=== PATIENT | female | born 1940 | race Hispanic/Latino ===

== ENCOUNTER → 2017-08-18 | Outpatient (CLI) | payer MEDICARE, BC ==
[~2017-08-18] MED LIST: ATORVASTATIN CA40 MG PO; BREO INH; BUTRANS1 EAC1; CELEBREX200 MG PO; ELLIPTA INH; HUMALOG MI100 UNIT/4 SQ; HYDROXYCHLOROQ200 MG PO; LANTUS100 UNITS/ SQ; LEVSIN-SL0.125 MG SL; LOSARTAN-HCTZ1 EAC2 PO; LYRICA50 MG; MECLIZINE HCL25 MG PO; METOPROLOL TART25 MG PO; NEXIUM40 MG PO; NORCO 7.5-3251 EACH PO; PANTOPRAZOLE SO40 MG PO; PREDNISONE5 MG PO; PREVACID; QUETIAPINE FUMA25 MG PO; VESICARE5 MG PO; VICTOZA 3-0.6 MG/0.1 SQ; VIT C PO; VITAMIN D PO; [UNRECOGNIZED DRUG - OTHER] PO
--- NOTE | 2017-08-19 08:34 | Diagnostic Imaging Report ---
Examination: MRI SPINE LUMBAR WITHOUT CONTRAST History: Low back pain for the past 2 years. Comparison studies: MRI of the lumbar spine performed April 25, 2014. Technique: Sagittal, coronal and axial T2 , sagittal T1 and STIR; axial spin density oblique. Findings: Number of lumbar vertebral bodies: Five. Alignment: Normal lordosis. No scoliosis. Soft tissues: Atrophic kidneys, unchanged. Posterior paraspinal soft tissues and muscles: Unchanged moderate atrophy from L4 through S1. Lower thoracic cord: Normal in signal and morphology. The tip of the conus is at T12-L1. Cauda equina: No masses. No arachnoiditis. Vertebrae: No fractures, infection or neoplasm. Degenerative changes: L1-L2: No abnormalities. L2-L3: Mild retrolisthesis, unchanged. Mild diffuse disc bulge with mild bilateral neural foraminal narrowing, new from prior exam. No canal stenosis. L3-L4: Asymmetric to the left disc bulge, mild ligamentum flavum thickening and bilateral facet arthropathy result in mild bilateral neural foraminal narrowing and mild canal stenosis. L4-L5: Bilateral pedicle screws and decompressive laminectomy changes. No foraminal stenosis. L5-S1: Unchanged findings related to decompressive laminectomy with bilateral L5 pedicle screws and interbody disc spacer. Unchanged mild right foraminal narrowing due to diffuse disc bulge. No left foraminal narrowing. IMPRESSION: 1. New mild bilateral neural foraminal narrowing at L2-L3 when compared to prior examination performed April 25, 2014. 2. Unchanged remaining degenerative changes from L3-L4 through L5-S1 with mild canal stenosis at L3-L4. 3. Prior decompressive laminectomies from L4 through S1 with bilateral pedicle screws at L4 and L5 and interbody disc spacer at L5-S1. 4. Unchanged mild retrolisthesis of L2 on L3. Signed by: Dr. Stephanie Cage M.D. on 08/19/2017 8:30 AM
== END ==
LOC: MRI 14:32
PROVIDERS: ATTEND Internal Medicine
DX: M53.9 Dorsopathy, unspecified (principal)
CPT/HCPCS: 72148

== ENCOUNTER → 2017-09-08 | Outpatient (CLI) | payer MEDICARE, BC ==
[2017-09-08 13:59] LABS: CREATININE, SERUM 1.37 mg/dL (0.57-1.11)
--- NOTE | 2017-09-08 15:18 | Diagnostic Imaging Report ---
EXAMINATION: MRI of the brain without contrast. HISTORY: Head trauma, frequent falls, follow-up subdural hematomas. COMPARISON: Head CT on 01/31/2016 and 08/07/[address] on 01/30/2011 TECHNIQUE: Sagittal T2; axial DWI, T2, FLAIR, T1-IR, T2 gradient echo; coronal FLAIR. IMAGE QUALITY: Adequate. FINDINGS: Parenchyma: 1. Few scattered and mildly confluent periventricular white matter T2 hyperintense foci, most likely nonspecific chronic microvascular ischemic changes. 2. No mass, hemorrhage, acute or chronic infarcts. Skull: Unremarkable. Vessels: Expected flow voids present in the major arteries and dural sinuses. Extra-axial spaces: No abnormal signal intensity or mass effect. Stable approximately 8 mm maximum AP diameter bilateral anterior frontal chronic subdural hygromas without associated mass effect. Brain volume: Mild supra and infratentorial generalized brain volume loss. No disproportionate lobar atrophy. Ventricles: No hydrocephalus or displacement. Foramen magnum: Unremarkable. Sella: Unremarkable. Paranasal / mastoid sinuses: No significant inflammatory disease. IMPRESSION: 1. No acute posttraumatic intracranial abnormalities, particularly no evidence of hemorrhage or acute subdural hematomas. 2. Unchanged small bilateral frontal chronic subdural hygromas when compared to multiple studies back to 01/30/2011, no further follow-up imaging is required. 3. Mild chronic microvascular ischemic changes. Signed by: Dr. Bethanie Cherry M.D. on 09/08/2017 3:14 PM
== END ==
LOC: MRI 12:50
PROVIDERS: ATTEND Psychiatry & Neurology Clinical Neurophysiology
DX: I62.00 Nontraumatic subdural hemorrhage, unspecified (principal)
CPT/HCPCS: 36415; 70551; 82565; 84520

== ENCOUNTER → 2017-09-23 | Outpatient (CLI) | payer MEDICARE, BC ==
--- NOTE | 2017-09-23 09:03 | Diagnostic Imaging Report ---
PROCEDURE:ABDOMINAL ULTRASOUND COMPARISON:Patients [facility], US, US ABDOMEN COMPLETE, 04/09/2014, 12:34. Patients [facility], CT, CT ABDOMEN/PELVIS W CONTRAST, 01/23/2011, 20:00. INDICATIONS:Renal insufficiency TECHNIQUE:Grayscale and color Doppler ultrasound FINDINGS: Inner segments of the aorta and inferior vena cava are of normal caliber aerated Normal pancreatic head and body. The tail is obscured by bowel gas. Right liver span 13.1 cm. Diffusely increased and coarsened echotexture. Portal vein diameter 0.8 cm; normal flow direction. Cholecystectomy. Common bile duct diameter 0.6 cm Right kidney: 11.2 x 3.6 x 3.8 cm. Cortical thickness 1.3 cm Left kidney: 10.6 x 4.5 x 4 cm. Cortical thickness 1.2 cm Both kidneys are normal in echotexture and contour. No hydronephrosis, mass or stone. Left kidney contains a 1.3 cm hypoechoic nodule stable in size since 2014, likely a small complex cyst. Spleen length 9.3 cm. No ascites. CONCLUSION: 1. Mild renal cortical thinning similar to 2014 without acute abnormality. 2. Echogenic liver in keeping with steatosis. Dictated by: Brian Bella M.D. on 09/23/2017 at 9:12 Electronically approved by: Brian Bella M.D. on 09/23/2017 at 9:12
--- NOTE | 2017-09-23 09:18 | Diagnostic Imaging Report ---
EXAM: DXA BONE DENSITY INDICATIONS: Renal insufficiency COMPARISON: [facility], DX, BONE DXA DUAL ENERGY, 09/19/2015, 13:00. FINDINGS: Left femoral neck bone mineral density (BMD) (g/cm2):0.675 Femur T-score (standard deviation relative to young adult mean BMD): -1.7 Femur Z-score (standard deviation relative to age-matched control group):0.5 Lumbar bone mineral density (L1-L3) (BMD) (g/cm2):1.047 Lumbar T-score (standard deviation relative to young adult mean BMD): 0.3 Lumbar Z-score (standard deviation relative to age-matched control group):2.7 Femur: Change since prior exam (%):-4.8 Change since baseline exam (%):-6.8 Spine:+3.8 Change since prior exam (%):+4.5 Change since baseline exam (%): CONCLUSION: 1. WHO bone mineral classification: Low bone mass (osteopenia) 2. There is a statistically significant decrease in bone mineral density of the left hip. 3. Major 10 year osteoporotic fracture risk is 5.9%, with a hip fracture risk a 1.1%. World Health Organization Classification: *The Z-score is provided for informational purposes. The T-score is preferable for clinical decisions. RECOMMENDATIONS: Normal \T\ Low Bone Mass: Calcium supplementation, daily multi-vitamin, and adequate exercise as preventive measures against osteoporosis. Osteoporosis \T\ Severe Osteoporosis: In addition to the above, pharmacologic therapy. Dictated by: Brian Bella M.D. on 09/23/2017 at 9:28 Electronically approved by: Brian Bella M.D. on 09/23/2017 at 9:28
--- NOTE | 2017-10-05 08:25 | Diagnostic Imaging Report ---
#[id number] - MGSCRBIL #BILATERAL DIGITAL SCREENING MAMMOGRAM WITH CAD: 09/23/2017 CLINICAL: Routine screening. Comparison is made to exams dated: 09/28/2016 mammogram, 09/19/2015 mammogram and 09/18/2014 mammogram - [facility]. Current study contains 5 films. The tissue of both breasts is heterogeneously dense. This may lower the sensitivity of mammography. Current study was also evaluated with a Computer Aided Detection (CAD) system. There are benign vascular calcifications and calcifications in both breasts. There also are benign lymph nodes in both breasts. No significant masses, calcifications, or other findings are seen in either breast. There has been no significant interval change. IMPRESSION: BENIGN There is no mammographic evidence of malignancy. A 1 year screening mammogram is recommended. The patient will be notified by letter of the results. Jose braxton/tan:10/04/2017 12:27:55 Visual Education Director: Radha JOHNSON(R)(M), [facility] letter sent: Compared to Prior B9 Mammogram BI-RADS: 2 Benign
== END ==
LOC: US 07:32
PROVIDERS: ATTEND Internal Medicine
DX: Z12.31 Encounter for screening mammogram for malignant neoplasm of breast (principal); Z13.820 Encounter for screening for osteoporosis; N28.9 Disorder of kidney and ureter, unspecified; M54.9 Dorsalgia, unspecified
CPT/HCPCS: 76700; 77080; G0202; 77067

== ENCOUNTER → 2018-06-25 | Day surgery (SDC) | payer MEDICARE, BC ==
[2018-06-22 10:37] LABS: BASOPHILS % 0.5 % (0.0-1.0); EOSINOPHILS # (AUTO) 0.1 (0.0-0.4); EOSINOPHILS % 0.7 % (0.0-6.0); HEMATOCRIT 41.1 % (34.2-44.1); HEMOGLOBIN 13.1 g/dL (12.0-16.0); LYMPHOCYTES # (AUTO) 1.8 (1.0-3.2); LYMPHOCYTES % 20.6 % (18.0-39.1); MEAN CORPUSCULAR HEMOGLOBIN 28.4 pg (28-32); MEAN CORPUSCULAR HGB CONC 31.9 g/dL (31-35); MONOCYTES # (AUTO) 0.8 (0.2-0.8); MONOCYTES % 8.8 % (4.4-11.3); NEUTROPHILS # (AUTO) 5.9 (2.1-6.9); NEUTROPHILS % 68.9 % (38.7-80.0); PLATELET COUNT 189 x10e3/uL (140-360); RED BLOOD COUNT 4.62 x10e6/uL (3.6-5.1); RED CELL DISTRIBUTION WIDTH 13.3 % (11.7-14.4)
[~2018-06-25] MED LIST changes: +AMLODIPINE BESYL5 MG PO; +AZELASTINE137 MCG/0.; +CYMBALTA30 MG PO; +FENTANYL CITRATE/PF 100MCG/2 ML INJ ONE; +GABAPENTIN300 MG PO; +HUMALOG MI100 UNIT/2 SQ; +HYOSCYAMINE SULFATE 0.5 MG/ML INJ ONE; +IRBESARTAN300 MG PO; +MIDAZOLAM HCL 2 MG/2 ML VIAL ONE; +VITAMIN D250000 UNIT PO
--- OUTSIDE RECORDS SUMMARY | 2018-06-27 11:24 | XMS REPORT ---
Author Author Dave Saul Organization [employer] Address Unknown Phone Unavailable Care Team Providers Care State Director Name Role Phone Dave Saul CP Unavailable Allergies No Known Allergies Problems Problem Type Condition Code Onset Dates Condition Status Problem Mid back pain M54.9 Active Problem Lumbar post-laminectomy syndrome M96.1 Active Problem Lumbosacral spondylosis without myelopathy M47.817 Active Problem Lumbar radiculopathy M54.16 Active Assessment Lumbosacral spondylosis without myelopathy M47.817 Active Problem Neuropathy G62.9 Active Problem Chronic pain syndrome G89.4 Active Medications No Known Medications Results No Known Results Summary Purpose [employer] Submission
--- OUTSIDE RECORDS SUMMARY | 2018-06-27 11:24 | XMS REPORT ---
Author Author Agusto Card [facility] [employer] Address Unknown Phone Unavailable Care Team Providers Care Hazardous Waste Technician Name Role Phone Agusto Card Unavailable Allergies, Adverse Reactions, Alerts Substance Reaction Event Type N.K.D.A. 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 Problem Bilateral low back pain with sciatica, sciatica laterality unspecified M54.40 Active Problem Low back pain M54.5 Active Medications Medication Code System Code Instructions Start Date End Date Status Dosage Losartan NDC 0 50mg Orally Once a day Active 1 tablet Folic Acid [facility] [address]-96 1 MG Orally Once a day May 31, 2017 Sep 28, 2017 Active 1 tablet Metoprolol Tartrate [facility] [address]-82 25 MG Orally Twice a day Active 1 tablet with food Methotrexate NDC 0 2.5mg Orally Once a week May 31, 2017 Sep 28, 2017 Active 4 tabs altogether Breo Ellipta [facility] [address]-59 100-25 MCG/INH Inhalation Once a day Active 1 puff Humalog [facility] [address]-21 75/25 Subcutaneous Active as directed Atorvastatin Calcium [facility] [address]-63 20 MG Orally Once a day Active 1 tablet Montelukast Sodium [facility] [address]-95 10 MG Orally Once a day Active 1 tablet in the evening Fluticasone Propionate [facility] [address]-66 50 MCG/ACT Nasally Once a day Active 1 spray in each nostril Esomeprazole Magnesium [facility] [address]-02 40 MG Orally Once a day Active 1 capsule PredniSONE NDC 0 5 MG Orally Once a day May 31, 2017 Sep 28, 2017 Active 1 tab prn Skustqawqaz-JWGR-Ramzuqw Prod NDC 0 7.5/325 MG Orally BID Active 1 tablet Hydroxychloroquine Sulfate ND 02115964057 200 MG Orally qam Active 1 tablet with food or milk Vital Signs Date/Time: May 31, 2017 BMI 32.63 Index Weight 167.1 lbs Height 60 in Temperature 97.7 F Cardiac Monitoring Heart Rate 80 /min Blood Pressure Diastolic 70 mm Hg Blood Pressure Systolic 110 mm Hg Results No Known Results Immunizations Vaccine Administration Date Flu Vaccine May 31, 2017 Summary Purpose [employer] Submission
--- OUTSIDE RECORDS SUMMARY | 2018-06-27 11:24 | XMS REPORT ---
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
--- OUTSIDE RECORDS SUMMARY | 2018-06-27 11:24 | XMS REPORT ---
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
--- OUTSIDE RECORDS SUMMARY | 2018-06-27 11:24 | XMS REPORT ---
Author Author Lavon Morales Organization [employer] Address Unknown Phone Unavailable Care Team Providers Care Regional Administrative Assistant Name Role Phone Lavon Morales CP Unavailable Allergies No Known Allergies Problems Problem Type Condition Code Onset Dates Condition Status Problem Lumbar radiculopathy M54.16 Active Problem Lumbar post-laminectomy syndrome M96.1 Active Problem Chronic pain syndrome G89.4 Active Problem Neuropathy G62.9 Active Medications No Known Medications Results No Known Results Summary Purpose [employer] Submission
--- OUTSIDE RECORDS SUMMARY | 2018-06-27 11:24 | XMS REPORT | CCD ---
Author Author Auto Generated Organization [facility] Address Unknown Phone Unavailable Care Team Providers Care Design Project Manager Name Role Phone ChartServer, Login CP Unavailable Jurgen Mora RP Pacheco Lyle CP [phone] Jania Gomez CP [phone] Apolonia Walton CP Allergies, Adverse Reactions, Alerts Substance Reaction Status NKDA ?? Active Vital Signs Most recent to oldest [Reference Range]: 1 Height 154.94 cm (06/24/2011 09:38:00) ?? Weight 81.818 kg (06/24/2011 09:38:00) ??
--- OUTSIDE RECORDS SUMMARY | 2018-06-27 11:24 | XMS REPORT ---
Author Author [facility] Organization [facility] Address Unknown Phone Unavailable Care Team Providers Care Certified Teacher Assistant Name Role Phone David WOODALL Unavailable Unavailable WEDNESDAY, Unavailable Unavailable Problems This patient has no known problems. Allergies, Adverse Reactions, Alerts This patient has no known allergies or adverse reactions. Medications This patient has no known medications. Results Test Description Test Time Test Comments Text Results Atomic Results Result Comments BONE DXA DUAL ENERGY [place] [address] Patient Name: FRANCISCA BOATENG MR #: [id number] : 1940 Age/Sex: 77/F Req #: [id number] [facility] Physician: Ordered by: YUDY WOODALL MD Report #: [id number] Location: US Room/Bed: Procedure: [id number] DX/BONE DXA DUAL ENERGY Exam Date: Exam Time: REPORT STATUS: Signed EXAM: DXA BONE DENSITY INDICATIONS: Renal insufficiency COMPARISON: [facility], DX, BONE DXA DUAL ENERGY, 09/19/2015, 13:00. FINDINGS: Left femoral neck bone mineral density (BMD) (g/cm2): 0.675 Femur T-score (standard deviation relative to young adult mean BMD): -1.7 Femur Z-score (standard deviation relative to age-matched control group): 0.5 Lumbar bone mineral density (L1-L3) (BMD) (g/cm2): 1.047 Lumbar T- score (standard deviation relative to young adult mean BMD): 0.3 Lumbar Z-score (standard deviation relative to age-matched control group): 2.7 Femur: Change since prior exam (%): -4.8 Change since baseline exam (%): -6.8 Spine: +3.8 Change since prior exam (%): +4.5 Change since baseline exam (%): CONCLUSION: 1. WHO bone mineral classification: Low bone mass (osteopenia) 2. There is a statistically significant decrease in bone mineral density of the left hip. 3. Major 10 year osteoporotic fracture risk is 5.9%, with a hip fracture risk a 1.1%. World Health Organization Classification: *The Z-score is provided for informational purposes. The T-score is preferable for clinical decisions. RECOMMENDATIONS: Normal T Low Bone Mass: Calcium supplementation, daily multi-vitamin, and adequate exercise as preventive measures against osteoporosis. Osteoporosis T Severe Osteoporosis: In addition to the above, pharmacologic therapy. Dictated by: Rj Bella M.D. on 09/23/2017 at 9:28 Electronically approved by: Rj Bella M.D. on 09/23/2017 at 9:28 Dictated By: RJ BELLA MD 7 Transcribed By: CHOCO on 09/23/17927 COPY TO: YUDY WOODALL MD MAMMOGRAPHY DIGITAL SCR [place] [address] Patient Name: FRANCISCA BOATENG MR #: [id number] : 1940 Age/Sex: 77/F Req #: [id number] [facility] Physician: Ordered by: YUDY WOODALL MD Report #: [id number] Location: Room/Bed: Procedure: [id number] MG/MAMMOGRAPHY DIGITAL SCR BILAT Exam Date: 09/23/17 Exam Time: 0833 REPORT STATUS: Signed #[id number] - MGSCRBIL #BILATERAL DIGITAL SCREENING MAMMOGRAM WITH CAD: 09/23/2017 CLINICAL: Routine screening. Comparison is made to exams dated: 09/28/2016 mammogram, 09/19/2015 mammogram and 09/18/2014 mammogram - [facility]. Current study contains 5 films. The tissue of both breasts is heterogeneously dense. This may lower the sensitivity of mammography. Current study was also evaluated with a Computer Aided Detection (CAD) system. There are benign vascular calcifications and calcifications in both breasts. There also are benign lymph nodes in both breasts. No significant masses, calcifications, or other findings are seen in either breast. There has been no significant interval change. IMPRESSION: BENIGN There is no mammographic evidence of malignancy. A 1 year screening mammogram is recommended. The patient will be notified by letter of the results. Janene braxton/cathleen:10/04/2017 12:27:55 Camera Repairman: Radha JOHNSON(Kitty)(M), [facility] letter sent: Compared to Prior B9 Mammogram BI-RADS: 2 Benign Dictated By: JANENE PINTO DO 1227 Transcribed By: CATHLEEN on 10/04/17 1227 COPY TO: YUDY WOODALL MD US ABDOMEN COMPLETE [place] [address] Patient Name: FRANCISCA BOATENG MR #: [id number] : 1940 Age/Sex: 77/F Req #: [id number] Adm Physician: Ordered by: YUDY WOODALL MD Report #: [id number] Location: Room/Bed: Procedure: [id number] US/US ABDOMEN COMPLETE Exam Date: 09/23/17 Exam Time: 0800 REPORT STATUS: Signed PROCEDURE: ABDOMINAL ULTRASOUND COMPARISON: [facility], US, US ABDOMEN COMPLETE, 04/09/2014, 12:34. [facility], CT, CT ABDOMEN/PELVIS W CONTRAST, 01/23/2011, 20:00. INDICATIONS: Renal insufficiency TECHNIQUE: Grayscale and color Doppler ultrasound FINDINGS: Inner segments of the aorta and inferior vena cava are of normal caliber aerated Normal pancreatic head and body. The tail is obscured by bowel gas. Right liver span 13.1 cm. Diffusely increased and coarsened echotexture. Portal vein diameter 0.8 cm; normal flow direction. Cholecystectomy. Common bile duct diameter 0.6 cm Right kidney: 11.2 x 3.6 x 3.8 cm. Cortical thickness 1.3 cm Left kidney: 10.6 x 4.5 x 4 cm. Cortical thickness 1.2 cm Both kidneys are normal in echotexture and contour. No hydronephrosis, mass or stone. Left kidney contains a 1.3 cm hypoechoic nodule stable in size since 2014, likely a small complex cyst. Spleen length 9.3 cm. No ascites. CONCLUSION: 1. Mild renal cortical thinning similar to 2014 without acute abnormality. 2. Echogenic liver in keeping with steatosis. Dictated by: Rj Bella M.D. on 09/23/2017 at 9:12 Electronically approved by: Rj Bella M.D. on 09/23/2017 at 9:12 Dictated By: RJ BELLA MD 1 Transcribed By: CHOCO on 09/23/17911 COPY TO: YUDY WOODALL MD MRI BRAIN [place] [address] Patient Name: FRANCISCA BOATENG MR #: [id number] : 1940 Age/Sex: 77/F Re #: [id number] [facility] Physician: Ordered by: BRUNO ORDAZ MD Report #: [id number] Location: MRI Room/Bed: Procedure: [id number] MRI/MRI BRAIN WO Exam Date: 09/08/17 Exam Time: 1409 REPORT STATUS: Signed EXAMINATION: MRI of the brain without contrast. HISTORY: Head trauma, frequent falls, follow-up subdural hematomas. COMPARISON: Head CT on 01/31/2016 and 08/07/[address] on 01/30/2011 TECHNIQUE: Sagittal T2; axial DWI, T2, FLAIR, T1-IR, T2 gradient echo; coronal FLAIR. IMAGE QUALITY: Adequate. FINDINGS: Parenchyma: 1. Few scattered and mildly confluent periventricular white matter T2 hyperintense foci, most likely nonspecific chronic microvascular ischemic changes. 2. No mass, hemorrhage, acute or chronic infarcts. Skull: Unremarkable. Vessels: Expected flow voids present in the major arteries and dural sinuses. Extra-axial spaces: No abnormal signal intensity or mass effect. Stable approximately 8 mm maximum AP diameter bilateral anterior frontal chron ic subdural hygromas without associated mass effect. Brain volume: Mild supra and infratentorial generalized brain volume loss. No disproportionate lobar atrophy. Ventricles: No hydrocephalus or displacement. Foramen magnum: Unremarkable. Sella: Unremarkable. Paranasal / mastoid sinuses: No significant inflammatory disease. IMPRESSION: 1. No acute posttraumatic intracranial abnormalities, particularly no evidence of hemorrhage or acute subdural hematomas. 2. Unchanged small bilateral frontal chronic subdural hygromas when compared to multiple studies back to 01/30/2011, no further follow-up imaging is required. 3. Mild chronic microvascular ischemic changes. Signed by: Dr. Louie Cherry M.D. on 09/08/2017 3:14 PM Dictated By: LOUIE CHERRY MD 13 Transcribed By: NICOLE on 09/08/171513 COPY TO: WEDNESDAYBRUNO MD MRI SPINE LUMBAR WO [place] [address] Patient Name: FRANCISCA BOATENG MR #: [id number] : 1940 Age/Sex: 77/F Req #: [id number] Adm Physician: Ordered by: YUDY WOODALL MD Report #: [id number] Location: MRI Room/Bed: Procedure: [id number] MRI/MRI SPINE LUMBAR WO Exam Date: Exam Time: REPORT STATUS: Signed Examination: MRI SPINE LUMBAR WITHOUT CONTRAST History: Low back pain for the past 2 years. Comparison studies: MRI of the lumbar spine performed April 25, 2014. Technique: Sagittal, coronal and axial T2 , sagittal T1 and STIR; axial spin density oblique. Findings: Number of lumbar vertebral bodies: Five. Alignment: Normal lordosis. No scoliosis. Soft tissues: Atrophic kidneys, unchanged. Posterior paraspinal soft tissues and muscles: Unchanged moderate atrophy from L4 through S1. Lower thoracic cord: Normal in signal and morphology. The tip of the conus is at T12-L1. Cauda equina: No masses. No arachnoiditis. Vertebrae: No fractures, infection or neoplasm. Degenerative changes: L1-L2: No abnormalities. L2- L3: Mild retrolisthesis, unchanged. Mild diffuse disc bulge with mild bilateral neural foraminal narrowing, new from prior exam. No canal stenosis. L3-L4: Asymmetric to the left disc bulge, mild ligamentum flavum thickening and bilateral facet arthropathy result in mild bilateral neural foraminal narrowing and mild canal stenosis. L4-L5: Bilateral pedicle screws and decompressive laminectomy changes. No foraminal stenosis. L5-S1: Unchanged findings related to decompressive laminectomy with bilateral L5 pedicle screws and interbody disc spacer. Unchanged mild right foraminal narrowing due to diffuse disc bulge. No left foraminal narrowing. IMPRESSION: 1. New mild bilateral neural foraminal narrowing at L2-L3 when compared to prior examination performed April 25, 2014. 2. Unchanged remaining degenerative changes from L3-L4 through L5-S1 with mild canal stenosis at L3-L4. 3. Prior decompressive laminectomies from L4 through S1 with bilateral pedicle screws at L4 and L5 and interbody disc spacer at L5-S1. 4. Unchanged mild retrolisthesis of L2 on L3. Signed by: Dr. Stephanie Cage M.D. on 08/19/2017 8:30 AM Dictated By: STEPHANIE ALEXIS MD 9 Transcribed By: NICOLE on 08/19/17829 COPY TO: YUDY WOODALL MD
--- OUTSIDE RECORDS SUMMARY | 2018-06-27 11:24 | XMS REPORT ---
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
--- OUTSIDE RECORDS SUMMARY | 2018-06-27 11:24 | XMS REPORT ---
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
--- OUTSIDE RECORDS SUMMARY | 2018-06-27 11:24 | XMS REPORT ---
Author Author Lavon Morales Organization [employer] Address Unknown Phone Unavailable Care Team Providers Care International Trade Teacher Name Role Phone Lavon Morales CP Unavailable Allergies No Known Allergies Problems Problem Type Condition Code Onset Dates Condition Status Problem Mid back pain M54.9 Active Problem Lumbar post-laminectomy syndrome M96.1 Active Problem Lumbosacral spondylosis without myelopathy M47.817 Active Problem Lumbar radiculopathy M54.16 Active Problem Neuropathy G62.9 Active Problem Chronic pain syndrome G89.4 Active Medications No Known Medications Results No Known Results Summary Purpose [employer] Submission
--- OUTSIDE RECORDS SUMMARY | 2018-06-27 11:24 | XMS REPORT | Continuity of Care Document ---
Author Author [facility] Interface Address Unknown Phone Unavailable Problems Problem Status Onset Date Classification Date Reported Comments Source BREATH SHORTNESS, ANTISEPTIC AND GERMICIDES, ACUTE Active 06/22/2011 [facility] Primary osteoarthritis involving multiple joints Active Problem 08/04/2017 Meek Saul Sarcoidosis Active Problem 08/04/2017 Meek Saul Other property man drug therapy Active Problem 08/04/2017 Meek Saul Sarcoidosis of lung Active Problem 08/04/2017 Meek Saul Sarcoid arthropathy Active Problem 08/04/2017 Meek Saul Low back pain Active Problem 08/04/2017 Meek Saul Bilateral low back pain with sciatica, sciatica laterality unspecified Active Problem 08/04/2017 Meek Saul Need for prophylactic vaccination and inoculation against influenza Active Diagnosis 06/03/2017 Meek Saul Lumbar radiculopathy Active Problem 01/07/2018 Meek Saul Lumbar post-laminectomy syndrome Active Problem 01/07/2018 Meek Saul Chronic pain syndrome Active Problem 01/07/2018 Meek Saul Neuropathy Active Problem 01/07/2018 Meek Saul Mid back pain Active Problem 01/07/2018 Meek Saul Lumbosacral spondylosis without myelopathy Active Problem 01/07/2018 Meekariana Saul SHORTNESS OF BREATH Active [facility] SARCOIDOSIS Active [facility] ASTHMA NOS W (AC) EXAC Active [facility] Medications Medication Details Route Status Patient Instructions Ordering Provider Order Date Source Folic Acid 1 tablet Orally Active 1 MG Orally Once a day Kyaw 05/31/2017 Meek Saul Methotrexate 4 tabs altogether Orally Active 2.5mg Orally Once a week Kyaw 05/31/2017 Meek Saul PredniSONE 1 tab prn Orally Active 5 MG Orally Once a day Kyaw 05/31/2017 Meek Saul Losartan 1 tablet Orally Active 50mg Orally Once a day Kyaw Meek Saul Metoprolol Tartrate 1 tablet with food Orally Active 25 MG Orally Twice a day Kyaw Meek Saul Breo Ellipta 1 puff Inhalation Active 100-25 MCG/INH Inhalation Once a day Kyaw Meek Saul Humalog as directed Subcutaneous Active 75/25 Subcutaneous Kyaw Meek Saul Atorvastatin Calcium 1 tablet Orally Active 20 MG Orally Once a day Kyaw Meek Saul Montelukast Sodium 1 tablet in the evening Orally Active 10 MG Orally Once a day Kyaw Meek Saul Fluticasone Propionate 1 spray in each nostril Nasally Active 50 MCG/ACT Nasally Once a day Kyaw Meek Saul Esomeprazole Magnesium 1 capsule Orally Active 40 MG Orally Once a day Kyaw Meek Saul Jwgnhznnydi-ANJS-Bobtamt Prod 1 tablet Orally Active 7.5/325 MG Orally BID Kyaw Meek Saul Hydroxychloroquine Sulfate 1 tablet with food or milk Orally Active 200 MG Orally qam Kyaw Meek Saul Allergies, Adverse Reactions, Alerts Substance Category Reaction Severity Reaction type Status Date Reported Comments Source N.K.D.A. Adverse Reaction Info Not Available Adverse Reaction Active 05/31/2017 Meek Saul Immunizations Immunization Date Given Site Status Last Updated Comments Source Flu Vaccine 05/31/2017 completed Meek Saul Results Order Name Results Value Reference Range Date Interpretation Comments Source Vital Signs Vital Sign Value Date Comments Source Weight 167.1 05/31/2017 Meek Saul Height 60 05/31/2017 Meek Saul Temperature Oral (F) 97.7 F 05/31/2017 Meek Saul Heart Rate 80 05/31/2017 Meek Saul Diastolic (mm Hg) 70 05/31/2017 Meek Saul Systolic (mm Hg) 110 05/31/2017 Meek Saul Weight 81.818 06/24/2011 [facility] Height 154.94 cm 06/24/2011 [facility] Encounters Location Location Details Encounter Type Encounter Number Reason For Visit Attending Provider ADM Date DC Date Status Source [facility] Outpatient [id number] BREATH SHORTNESS, ANTISEPTIC AND GERMICIDES, ACUTE ALISON QUINTANILLAN 06/24/2011 Active [facility] Procedures Procedure Code Date Perfomer Comments Source
--- NOTE | 2018-08-09 20:31 | Operative Report ---
DATE OF PROCEDURE: June 25, 2018 REFERRING PHYSICIAN: Dr. Yudy Woodall. PROCEDURES PERFORMED: 1. Esophagogastroduodenoscopy with esophageal dilatation. 2. Colonoscopy with biopsies. INDICATIONS FOR ESOPHAGOGASTRODUODENOSCOPY: Dysphagia. INDICATIONS FOR COLONOSCOPY: Colorectal cancer screening. MEDICATION: Patient was done under MAC. Please see anesthesiologist's note. PROCEDURE: With patient in left lateral decubitus position, a flexible fiberoptic Olympus gastroscope was introduced into the esophagus under direct visualization without any difficulty. There was some patchy erythema noted in distal esophagus. The esophagus was then dilated to size 52-Frisian Mendez. The scope was then advanced with ease into the stomach traversing a small sliding hiatal hernia. The mucosa overlying the antrum and the body revealed some patchy erythema, low-grade edema and biopsies were obtained and sent to stain for H. pylori. The pylorus was of normal contour and shape. It was intubated with ease and the scope was advanced all the way to the 2nd portion of the duodenum. Biopsies were obtained from the proximal 2nd portion to rule out sprue. A minute nodule was noted also in the proximal 2nd portion that was biopsied. The scope was then withdrawn back into the stomach and retroflexed. Mucosa overlying the fundus and the cardia appeared to be within normal limits. The scope was then straightened out and was subsequently withdrawn. Patient tolerated the procedure well. IMPRESSION: 1. Distal esophagitis. 2. Esophagus dilated to size 52-Frisian Mendez. 3. Small sliding hiatal hernia. 4. Gastritis, biopsied. Biopsies sent to stain for Helicobacter pylori. 5. Duodenal nodule in proximal 2nd portion, biopsied. 6. Rule out sprue. PLAN: Follow up histology. Initiate Protonix 40 mg 1 p.o. q.a.m. a.c. Patient was then turned around. After adequate lubrication of the anal canal, a flexible fiberoptic Olympus colonoscope was inserted into the rectum with ease and advanced all the way to the cecum. It was then withdrawn slowly. Mucosa overlying the cecum, ascending colon, and transverse colon appeared to be within normal limits. There were some mild inflammatory changes noted in the descending and the sigmoid and biopsies were obtained. Diverticular disease was noted to involve also the descending and the sigmoid colon. The scope was then retroflexed into the distal rectum and small internal hemorrhoids were noted, none of which was actively bleeding. The scope was then straightened out. The scope was subsequently withdrawn. Patient tolerated the procedure well. IMPRESSION: 1. Diverticulosis. 2. Mild patchy colitis, left colon. 3. Internal hemorrhoids, none actively bleeding. PLAN: 1. Follow up histology. 2. Initiate VSL #3 one p.o. daily. 3. Patient does not need any followup colonoscopy considering his age and the findings on this current colonoscopy. Job#: [id number] cc:DR YUDY WOODALL
== END | disposition home or self-care (01) ==
LOC: ENDO 08:40
PROVIDERS: ATTEND Internal Medicine Gastroenterology
DX: Z12.11 Encounter for screening for malignant neoplasm of colon (principal); K29.60 Other gastritis without bleeding; K51.50 Left sided colitis without complications; K20.9 Esophagitis, unspecified; K31.89 Other diseases of stomach and duodenum; K57.30 Diverticulosis of large intestine without perforation or abscess without bleeding; K44.9 Diaphragmatic hernia without obstruction or gangrene; K64.8 Other hemorrhoids; E11.9 Type 2 diabetes mellitus without complications; I10 Essential (primary) hypertension; J45.909 Unspecified asthma, uncomplicated; F03.90 Unspecified dementia, unspecified severity, without behavioral disturbance, psychotic disturbance, mood disturbance, and anxiety; D86.9 Sarcoidosis, unspecified; Z01.810 Encounter for preprocedural cardiovascular examination; Z01.812 Encounter for preprocedural laboratory examination; Z79.4 Long term (current) use of insulin; Z68.32 Body mass index [BMI] 32.0-32.9, adult
CPT/HCPCS: 36415; 43239; 43450; 45380; 85025; 88305; 88312; 93005; J1980; J2250; 88304

== ENCOUNTER → 2018-09-16 | Outpatient (CLI) | payer MEDICARE, BC ==
[~2018-09-16] MED LIST changes: -FENTANYL CITRATE/PF 100MCG/2 ML INJ ONE; -HYOSCYAMINE SULFATE 0.5 MG/ML INJ ONE; -MIDAZOLAM HCL 2 MG/2 ML VIAL ONE
--- NOTE | 2018-09-16 11:18 | Diagnostic Imaging Report ---
MRI of the right shoulder without contrast. History: Shoulder pain. Decreased range of motion. Pain not responding to conservative management. Comparison: None Technique: Coronal PD FS, sagital PD FS, and axial PD and PD FS. Findings: Rotator cuff: There is rotator cuff tendinosis with midsubstance degeneration and articular sided fraying involving the anterior fibers of the supraspinatus tendon at the humeral insertion site. Additionally, there is subscapularis tendinosis with mild fraying. The teres minor tendon is intact. Osseous acromion complex: There is a type II acromion with mild lateral downsloping. There is moderate degenerative arthrosis at the acromioclavicular joint with undersurface spurring and narrowing of the supraspinatus tendon outlet. There is mild subacromial/subdeltoid bursitis. Glenohumeral joint: There is degeneration and fraying of the labrum. The articular cartilage surfaces are slightly thinned with regions of fraying and fissuring. The humeral head is well-seated in the glenoid fossa. There is an effusion/synovitis in the rotator interval and subcoracoid space. Biceps tendon: There is intra-articular biceps tendinosis with partial tearing at the biceps anchor. No full-thickness tear or retraction. Other findings: Negative for muscle denervation or osseous fracture. Impression: Rotator cuff tendinosis with midsubstance degeneration and articular sided fraying involving the anterior fibers of the supraspinatus tendon at the humeral insertion site. Additionally, there is subscapularis tendinosis with mild fraying. Intra-articular biceps tendinosis with partial tearing at the biceps anchor. No full-thickness tear or retraction. Moderate degenerative arthrosis at the acromioclavicular joint with undersurface spurring and narrowing of the supraspinatus tendon outlet. There is mild subacromial/subdeltoid bursitis Signed by: Dr. Brennen Fu M.D. on 09/16/2018 11:15 AM
== END ==
LOC: MRI 09:14
PROVIDERS: ATTEND Internal Medicine
DX: S43.401A Unspecified sprain of right shoulder joint, initial encounter (principal)

== ENCOUNTER → 2018-09-29 | Outpatient (CLI) | payer MEDICARE, BC | LOC: MAMMO 10:00 | PROVIDERS: ATTEND Internal Medicine | DX: Z12.31 Encounter for screening mammogram for malignant neoplasm of breast (principal) | CPT/HCPCS: 77067 ==

== ENCOUNTER → 2019-05-03 | Day surgery (SDC) | payer MEDICARE, BC ==
[2019-05-01 14:07] LABS: BASOPHILS % 0.4 % (0.0-1.0); EOSINOPHILS # (AUTO) 0.1 (0.0-0.4); EOSINOPHILS % 1.6 % (0.0-6.0); HEMATOCRIT 40.1 % (34.2-44.1); HEMOGLOBIN 12.8 g/dL (12.0-16.0); LYMPHOCYTES # (AUTO) 2.1 (1.0-3.2); LYMPHOCYTES % 26.7 % (18.0-39.1); MEAN CORPUSCULAR HGB CONC 31.9 g/dL (31-35); MEAN CORPUSCULAR VOLUME 87.7 fL (81-99); MONOCYTES # (AUTO) 0.8 (0.2-0.8); NEUTROPHILS # (AUTO) 4.7 (2.1-6.9); PLATELET COUNT 205 x10e3/uL (140-360); RED BLOOD COUNT 4.57 x10e6/uL (3.6-5.1); RED CELL DISTRIBUTION WIDTH 12.5 % (11.7-14.4)
[2019-05-01 14:25] LABS: ANION GAP 14.6 mmol/L (8-16); CALCIUM 10.2 mg/dL (8.4-10.2); CREATININE, SERUM 1.08 mg/dL (0.57-1.11); POTASSIUM 3.6 mmol/L (3.5-5.1)
--- NOTE | 2019-05-01 14:45 | Diagnostic Imaging Report ---
EXAMINATION: CHEST 2 VIEWS INDICATION: Pre-operative COMPARISON: None FINDINGS: LINES/TUBES:None LUNGS:The lungs are well-inflated. No focal consolidation or pulmonary edema. PLEURA:No pleural effusion or pneumothorax. MEDIASTINUM:The cardiomediastinal silhouette appears normal in size and shape. Atherosclerotic calcifications of the thoracic aorta. BONES/SOFT TISSUES:No acute osseous injury. Cervical spine fusion hardware in place. ABDOMEN:No free air under the diaphragm. IMPRESSION: No focal pneumonia or pulmonary edema. Signed by: Sissy Mccormack MD on 05/01/2019 2:41 PM
[~2019-05-03] MED LIST changes: +ACETAMINOPHEN 1000 MG/100 ML IV ONE; +CEFAZOLIN SOD 1 GM/NS 50ML 100 ML IV ONE; +DEXAMETHASONE SOD PHOS INJ 4 MG/ML VIAL ONE; +EPHEDRINE SULFATE INJ 50 MG/10 ML SYR ONE; +EPINEPHRINE 1 MG/ML 30ML VIAL ONE; +FENTANYL CITRATE/PF 100MCG/2 ML INJ ONE; +GLYCOPYRROLATE INJ 1MG/ 5 ML SYR ONE; +HEPARIN SOD/SOD CHLORIDE 1,000 ML ONE; +INSULIN GLARGINE SQ; +LIDOCAINE 2% /EPINEPHRINE 20 ML SDV INJ ONE; +LIDOCAINE HCL 2% LOCAL INJ 5 ML SDV VIAL INJ ONE; +LORATADINE10 MG PO; +MICARDIS40 MG PO; +MIDAZOLAM HCL 2 MG/2 ML VIAL ONE; +NEOSTIGMINE 5 MG/5ML SYR ONE; +ONDANSETRON HCL INJ 2MG/ML 2ML 2 MG/ML VIAL ONE; +PHENYLEPHRINE HCL 1% 10 MG/ML VIAL ONE; +PROPOFOL IV EMULSION 10 MG/ML 20 ML VIAL ONE; +ROCURONIUM BROMIDE 10 MG/ML 5ML VIAL ONE; +ROPIVACAINE 0.5% 5 MG/ML 30 ML SDV ONE; +SEVOFLURANE INHAL SOLN 250 ML PEN BTL ONE
--- OUTSIDE RECORDS SUMMARY | 2019-05-03 05:26 | XMS REPORT | Continuity of Care Document ---
Author Author [facility]. Organization [facility]. Address Unknown Phone Unavailable Care Team Providers Care Traffic Control Supervisor Name Role Phone [employer] [place] Unavailable Unavailable Problems Problem Status Onset Date Classification Date Reported Comments Source BREATH SHORTNESS, ANTISEPTIC AND GERMICIDES, ACUTE Active 06/22/2011 [facility] Primary osteoarthritis involving multiple joints Active Problem 08/04/2017 Meek Saul Sarcoidosis Active Problem 08/04/2017 Meek Saul Other longterm (current) drug therapy Active Problem 08/04/2017 Meek Saul [...] Lumbosacral spondylosis without myelopathy Active Problem 01/07/2018 Meek Saul SHORTNESS OF BREATH Active [facility] SARCOIDOSIS Active [facility] ASTHMA NOS W (AC) EXAC Active [facility] Medications Medication Details Route Status Patient Instructions [...] Active 25 MG Orally Twice a day [facility] Meek Saul Breo Ellipta 1 puff Inhalation Active 100-25 MCG/INH Inhalation Once a day Kyaw Meek Saul Humalog as directed Subcutaneous Active 75/25 Subcutaneous Kyaw Meek Saul Atorvastatin Calcium 1 tablet Orally Active 20 MG Orally Once a day Kyaw Meek Saul Montelukast Sodium 1 tablet in the evening Orally Active 10 MG Orally Once a day [facility] Meek Saul Fluticasone Propionate 1 spray in each nostril Nasally Active 50 MCG/ACT Nasally Once a day [facility] Meek Saul Esomeprazole Magnesium 1 capsule Orally Active 40 MG Orally Once a day [facility] Meek Saul Frzqcgbfuiq-AXEO-Izbqpjn Prod 1 tablet Orally Active 7.5/325 MG [...] Flu Vaccine 05/31/2017 completed Meek Saul Results No Data Provided for This Section Pathology Reports No Data Provided for This Section Diagnostic Reports No Data Provided for This Section Consultation Notes No Data Provided for This Section Discharge Summaries No Data Provided for This Section History and Physicals No Data Provided for This Section Vital Signs Vital Sign Value Date Comments Source Weight 167.1 05/31/2017 Meek Saul Height 60 05/31/2017 Meek Saul Temperature Oral (F) 97.7 F 05/31/2017 Meek Saul Heart Rate 80 05/31/2017 Meek Saul Diastolic (mm Hg) 70 05/31/2017 Meek Saul Systolic (mm Hg) 110 05/31/2017 Meek Saul Weight 81.818 06/24/2011 [facility] Height 154.94 cm 06/24/2011 [facility] Encounters Location Location Details Encounter Type Encounter Number Reason For Visit Attending Provider ADM Date DC Date Status Source [facility] Outpatient [id number] BREATH SHORTNESS, ANTISEPTIC AND GERMICIDES, ACUTE ALISON ADAIRHIN 06/24/2011 Active [facility] Procedures No Data Provided for This Section Assessment and Plan No Data Provided for This Section Plan of Care No Data Provided for This Section Social History No Data Provided for This Section Family History No Data Provided for This Section Advance Directives No Data Provided for This Section Functional Status No Data Provided for This Section
--- OUTSIDE RECORDS SUMMARY | 2019-05-03 05:26 | XMS REPORT | Clinical Summary ---
Author Author [facility] Organization [facility] Address Unknown Phone Unavailable Care Team Providers Care Sourcing Manager Name Role Phone Asked, No Pcp PCP Unavailable Allergies No Known Allergies Medications End Date Status Medication Sig Dispensed Refills Start Date Active atorvastatin (LIPITOR) 20 TK 1 T PO QPM 1 MG tablet 9 Active pantoprazole (PROTONIX) TK 1 T PO QD 1 40 MG EC tablet 9 Active meclizine (ANTIVERT) 12.5 TK 1 T PO TID 1 mg tablet 9 Active gabapentin (NEURONTIN) TK 1 C PO QD 1 100 mg capsule 9 Active telmisartan (MICARDIS) 80 TK 1 T PO QD 0 MG tablet 9 Active loratadine (CLARITIN) 10 TK 1 T PO D 1 mg tablet 9 Active Problems No known active problems Encounters Care Team Description Date Type Specialty Veena Redd 03/21/2019 Prep for Orthopedic Surgery Surgery Rupert Beckford MD Bilateral shoulder pain, unspecified chronicity (Primary Dx); Complete tear of right rotator cuff 03/15/2019 Office Visit Orthopedic Surgery after 05/02/2018 Family History Medical History Relation Name Comments No Known Problems Father No Known Problems Mother Relation Name Status Comments Father Mother Social History Date Tobacco Use Types Packs/Day Years Used Never Smoker Smokeless Tobacco: Never Used Drinks/Week oz/Week Comments Alcohol Use Yes Sex Assigned at Date Recorded Not on file Industry Job Start Date Occupation Not on file Not on file Not on file Travel End Travel History Travel Start No recent travel history available. Last Filed Vital Signs Reading Time Taken Comments Vital Sign - - Blood Pressure - - Pulse - - Temperature - - Respiratory Rate - - Oxygen Saturation - - Inhaled Oxygen Concentration 78.5 kg (173 lb) 03/15/2019 3:43 PM CDT Weight 154.9 cm (5' 1") 03/15/2019 3:43 PM CDT Height 32.69 03/15/2019 3:43 PM CDT Body Mass Index Plan of Treatment Health Maintenance Due Date Last Done Comments SHINGLES VACCINES (#1) 1990 65+ PNEUMOCOCCAL VACCINE 2005 (1 of 2 - PCV13) INFLUENZA VACCINE 03/23/2019 Procedures Comments Procedure Name Priority Date/Time Associated Diagnosis XR SHOULDERS BILATERAL Routine 03/15/2019 Bilateral shoulder pain, 3:47 PM CDT unspecified chronicity after 05/02/2018 Results * XR Shoulders Bilateral (03/15/2019 3:47 PM CDT) Specimen Narrative Performed At [facility] Three-view projection as recorded shows degenerative changes that are minimal.Its actually less impingement on the right side than it is on the left but there is an inferior marginal osteophytes its very very small and then the underside of the acromium has a mid substance osteophyte formation that translates inferiorly.No other arthropathy noted. Performing Organization Address [facility] Phone Number [facility] [address] [place] [address] after 05/02/2018 Insurance Type Payer Benefit Subscriber ID Effective Phone Address Plan / Dates Group Medicare MEDICARE MEDICARE xxxxxxxxxxx 2005-P [place], PART A AND resent [place] B PPO BCBS ANTHEM xxxxxxxxxxxx 2005-P BLUE CROSS resent Advance Directives For more information, please contact: [phone] Patient Primary Class Teacher Explanation Type Date Recorded Advance Directives, Living Will and Medical Power of Wheel Assembler
[2019-05-03 10:30] VITALS: BP 125/52
--- NOTE | 2019-05-05 22:35 | Operative Report ---
DATE OF PROCEDURE: 05/03/2019 SURGEON: Christopher Perez MD PREOPERATIVE DIAGNOSES: Right shoulder partial rotator cuff tear, right shoulder acromioclavicular joint arthritis. POSTOPERATIVE DIAGNOSES: Right shoulder partial rotator cuff tear, right shoulder labral tear, right shoulder synovitis, right shoulder acromioclavicular joint arthritis. OPERATIONS AND PROCEDURES PERFORMED: The patient underwent right shoulder examination under anesthesia, right shoulder arthroscopy, right shoulder debridement of synovitis, right shoulder debridement of partial rotator cuff tear, right shoulder arthroscopic biceps tenolysis, right shoulder arthroscopic subacromial decompression, acromioplasty, and right shoulder arthroscopic distal clavicle resection. CASING FLUSHER: Rosa Lemus. ANESTHESIA: General endotracheal intubation anesthesia. IV FLUIDS: Per the anesthesia record. BRIEF DESCRIPTION OF THE PATIENT'S OPERATIVE PROCEDURE: Ms. Araujo was taken to the operating room, placed in the supine position on the operating room table. Following induction of general anesthesia as well as endotracheal intubation, the patient's chair was converted to a beach chair type position. The patient's upper extremity was prepped and draped in standard surgical fashion. Range of motion of the shoulder joint was well maintained. There was no evidence of shoulder instability. Standard posterolateral and anterior portal was created without difficulty. The scope was placed within the shoulder joint atraumatically. Examination of the glenohumeral articulation demonstrated no significant evidence of chondromalacia. There was diffuse synovitis in the shoulder joint. There were no loose bodies in the shoulder joint. Examination of the rotator cuff demonstrated a partial tear of the leading edge of the rotator cuff. This comprised less than 50% of the insertion of the rotator cuff. A shaver was placed in the shoulder joint and this partial rotator cuff tear was debrided. The synovitis was also debrided at this time. Examination of the biceps tendon demonstrated a partial tearing at the base of the biceps tendon. There was, however, diffuse labral tear. The labral injury was unstable. A biceps tenolysis was performed at this time. The shoulder was inflated with sterile normal saline. The scope was placed in subacromial space and significant bursal inflammation was encountered. A lateral portal was created outside in technique. A bursectomy was performed. The bursal surface of the rotator cuff was also investigated fully and found to have no significant tearing. The patient did have a downward sloping acromion. The coracoacromial ligament was resected. An aggressive acromioplasty was performed at this time. The anterior portal was then transferred to the subacromial space. The shaver was transferred to the anterior portal and a 1 cm section of the distal clavicle was resected at this time. The scope was then transferred to the anterior portal to confirm complete resection of the clavicle. This was confirmed under direct vision. The shoulder was inflated with sterile normal saline. All portal sites were closed with nylon suture. The portal sites as well as the shoulder itself were then dressed sterilely. The patient was then provided a shoulder immobilizer, awakened, and taken to the postanesthesia care in stable condition. Rosa Lemus was the first grade teacher for this case and was necessary for the prepping and draping of the patient as well as positioning the arm and the passage of suture that allowed this case to be successful. MD DANTE Palacios/JONH /[id number]
== END | disposition home or self-care (01) ==
LOC: OR 05:19
PROVIDERS: ATTEND Specialist
DX: M75.111 Incomplete rotator cuff tear or rupture of right shoulder, not specified as traumatic (principal); M19.011 Primary osteoarthritis, right shoulder; S43.431A Superior glenoid labrum lesion of right shoulder, initial encounter; M65.811 Other synovitis and tenosynovitis, right shoulder; S46.211A Strain of muscle, fascia and tendon of other parts of biceps, right arm, initial encounter; M06.9 Rheumatoid arthritis, unspecified; J45.909 Unspecified asthma, uncomplicated; E11.22 Type 2 diabetes mellitus with diabetic chronic kidney disease; I13.0 Hypertensive heart and chronic kidney disease with heart failure and stage 1 through stage 4 chronic kidney disease, or unspecified chronic kidney disease; N18.3 Chronic kidney disease, stage 3 (moderate); I50.9 Heart failure, unspecified; F03.90 Unspecified dementia, unspecified severity, without behavioral disturbance, psychotic disturbance, mood disturbance, and anxiety; X58.XXXA Exposure to other specified factors, initial encounter; Z01.810 Encounter for preprocedural cardiovascular examination; Z01.812 Encounter for preprocedural laboratory examination; Z01.818 Encounter for other preprocedural examination; Z79.4 Long term (current) use of insulin; Z68.32 Body mass index [BMI] 32.0-32.9, adult
CPT/HCPCS: 29824; 29826; 36415 ×2; 71046; 80048; 82948; 85025; 93005; J0131; J0690; J1100; J2001 ×2; J2250; J2370; J2405; J2704; J2795; J3010; J3490

== ENCOUNTER 2019-06-12 08:40 | Outpatient (RCR) | payer MEDICARE, BC ==
[~2019-06-12 08:40] MED LIST changes: -ACETAMINOPHEN 1000 MG/100 ML IV ONE; -CEFAZOLIN SOD 1 GM/NS 50ML 100 ML IV ONE; -DEXAMETHASONE SOD PHOS INJ 4 MG/ML VIAL ONE; -EPHEDRINE SULFATE INJ 50 MG/10 ML SYR ONE; -EPINEPHRINE 1 MG/ML 30ML VIAL ONE; -FENTANYL CITRATE/PF 100MCG/2 ML INJ ONE; -GLYCOPYRROLATE INJ 1MG/ 5 ML SYR ONE; -HEPARIN SOD/SOD CHLORIDE 1,000 ML ONE; -LIDOCAINE 2% /EPINEPHRINE 20 ML SDV INJ ONE; -LIDOCAINE HCL 2% LOCAL INJ 5 ML SDV VIAL INJ ONE; -MIDAZOLAM HCL 2 MG/2 ML VIAL ONE; -NEOSTIGMINE 5 MG/5ML SYR ONE; -ONDANSETRON HCL INJ 2MG/ML 2ML 2 MG/ML VIAL ONE; -PHENYLEPHRINE HCL 1% 10 MG/ML VIAL ONE; -PROPOFOL IV EMULSION 10 MG/ML 20 ML VIAL ONE; -ROCURONIUM BROMIDE 10 MG/ML 5ML VIAL ONE; -ROPIVACAINE 0.5% 5 MG/ML 30 ML SDV ONE; -SEVOFLURANE INHAL SOLN 250 ML PEN BTL ONE
== END 2019-06-22 ==
LOC: PT 08:40
PROVIDERS: ATTEND Specialist
DX: M24.611 Ankylosis, right shoulder (principal); M62.81 Muscle weakness (generalized)

== ENCOUNTER → 2019-09-28 | Outpatient (CLI) | payer MEDICARE, BC ==
--- NOTE | 2019-09-28 18:20 | Diagnostic Imaging Report ---
Exam: Bone mineral density study. History: Osteopenia. Comparison: September 23, 2017 Discussion: Evaluation of the left hip and lumbar spine was performed utilizing DEXA Hologic bone densitometer. The study is technically adequate. Left hip total bone mineral density: 0.895gm/cm2, T-score is -0.5, Z-score is 1.5. Left hip femoral neck bone mineral density: 0.715gm/cm2, T-score is -1.3, Z-score is 0.9. Lumbar spine total bone mineral density:1.06 togm/cm2, T-score is0.4, Z-score is 3.0. Impression: 1. Osteopenia of the left hip, fracture risk is increased 2. Normal bone mineral density of the lumbar spine, fracture risk is not increased. The BMD change versus baseline is -6.4% and the BMD change versus previous -1.6% . Least significant change (LSC) for bone mineral density as provided by long wall shear operator is 0.023 g/cm2 for lumbar spine and 0.027 g/cm2 for total hip. 10 -year fracture risk per WHO Fracture Risk Assessment Tool (FRAX) for: Major osteoporotic fracture is 6.0% Hip fracture is 1.1% The above fracture probability is calculated for an untreated patient. Fracture probably may be lower if the patient has received treatment. All treatment decisions require clinical judgment and consideration of individual patient factors, including patient preferences, comorbidities, previous drug use and risk factors not captured in the FRAX model (e.g. frailty, falls, vitamin D deficiency, increased bone turnover, interval significant decline in BMD). The patient's fracture risk is compared to an age-matched control. Medical evaluation for secondary causes of low bone bone mineral density may be appropriate. Correlate clinically for the necessity and timing of the next bone mineral density study. Signed by: Dr. Brennen Fu M.D. on 09/28/2019 6:17 PM
== END ==
LOC: MAMMO 13:03
PROVIDERS: ATTEND Internal Medicine
DX: Z12.31 Encounter for screening mammogram for malignant neoplasm of breast (principal); Z13.820 Encounter for screening for osteoporosis
CPT/HCPCS: 77067; 77080

== ENCOUNTER → 2020-10-25 | Outpatient (CLI) | payer MEDICARE, BC | LOC: MAMMO 12:25 | PROVIDERS: ATTEND Internal Medicine | DX: Z12.31 Encounter for screening mammogram for malignant neoplasm of breast (principal); Z13.820 Encounter for screening for osteoporosis | CPT/HCPCS: 77067; 77080 ==

== ENCOUNTER → 2021-09-09 | Outpatient (CLI) | payer MEDICARE, BC | LOC: MRI 09:23 | PROVIDERS: ATTEND Internal Medicine | DX: R51.9 Headache, unspecified (principal) | CPT/HCPCS: 70551 ==

== ENCOUNTER → 2021-10-20 | Day surgery (SDC) | payer MEDICARE, BC ==
[2021-10-17 10:33] LABS: BASOPHILS # (AUTO) 0.1 (0.0-0.1); BASOPHILS % 0.8 % (0.0-1.0); EOSINOPHILS % 0.3 % (0.0-6.0); HEMATOCRIT 40.9 % (34.2-44.1); HEMOGLOBIN 12.9 g/dL (12.0-16.0); LYMPHOCYTES # (AUTO) 1.6 (1.0-3.2); LYMPHOCYTES % 24.1 % (18.0-39.1); MEAN CORPUSCULAR HEMOGLOBIN 28.8 pg (28-32); MEAN CORPUSCULAR HGB CONC 31.5 g/dL (31-35); MEAN CORPUSCULAR VOLUME 91.3 fL (81-99); MONOCYTES # (AUTO) 0.7 (0.2-0.8); MONOCYTES % 11.1 % (4.4-11.3); NEUTROPHILS # (AUTO) 4.1 (2.1-6.9); NEUTROPHILS % 63.4 % (38.7-80.0); PLATELET COUNT 165 x10e3/uL (140-360); RED BLOOD COUNT 4.48 x10e6/uL (3.6-5.1)
[~2021-10-20] MED LIST changes: +FENTANYL CITRATE/PF 100MCG/2 ML INJ ONE; +GABAPENTIN100 MG PO; +LIDOCAINE HCL 2% LOCAL INJ 5 ML SDV VIAL INJ ONE; +LOSARTAN POTASS25 MG PO; +METFORMIN HCL500 MG PO; +OZEMPIC0.25 MG/0. SC; +PROPOFOL IV EMULSION 10 MG/ML 20 ML VIAL ONE
[2021-10-20 09:05] VITALS: BP 126/74
== END | disposition home or self-care (01) ==
LOC: ENDO 07:35
PROVIDERS: ATTEND Internal Medicine Gastroenterology
DX: K21.00 Gastro-esophageal reflux disease with esophagitis, without bleeding (principal); K29.50 Unspecified chronic gastritis without bleeding; T47.1X5A Adverse effect of other antacids and anti-gastric-secretion drugs, initial encounter; K31.7 Polyp of stomach and duodenum; K31.89 Other diseases of stomach and duodenum; I10 Essential (primary) hypertension; J45.909 Unspecified asthma, uncomplicated; E11.22 Type 2 diabetes mellitus with diabetic chronic kidney disease; I12.9 Hypertensive chronic kidney disease with stage 1 through stage 4 chronic kidney disease, or unspecified chronic kidney disease; N18.9 Chronic kidney disease, unspecified; Z68.25 Body mass index [BMI] 25.0-25.9, adult; Z71.3 Dietary counseling and surveillance; K59.00 Constipation, unspecified; Z01.810 Encounter for preprocedural cardiovascular examination; Z01.812 Encounter for preprocedural laboratory examination; Z20.822 Contact with and (suspected) exposure to COVID-19; Z79.84 Long term (current) use of oral hypoglycemic drugs; Z79.899 Other long term (current) drug therapy
CPT/HCPCS: 36415; 43239; 43270; 43450; 82948; 85025; 88305; 88312; 88342; 93005; J2001; J3010; U0002

== ENCOUNTER → 2021-10-27 | Outpatient (CLI) | payer MEDICARE, BC ==
[~2021-10-27] MED LIST changes: -FENTANYL CITRATE/PF 100MCG/2 ML INJ ONE; -LIDOCAINE HCL 2% LOCAL INJ 5 ML SDV VIAL INJ ONE; -PROPOFOL IV EMULSION 10 MG/ML 20 ML VIAL ONE
== END ==
LOC: MAMMO 09:14
PROVIDERS: ATTEND Internal Medicine
DX: Z12.31 Encounter for screening mammogram for malignant neoplasm of breast (principal); Z13.820 Encounter for screening for osteoporosis
CPT/HCPCS: 77067; 77080

== ENCOUNTER → 2021-11-21 | Outpatient (CLI) | payer MEDICARE, BC | LOC: US 07:22 | PROVIDERS: ATTEND Internal Medicine Gastroenterology | DX: R10.84 Generalized abdominal pain (principal) | CPT/HCPCS: 76700 ==

== ENCOUNTER → 2021-12-29 | Outpatient (CLI) | payer MEDICARE, BC ==
[~2021-12-29] MED LIST changes: +IOPAMIDOL 370 MG/ML 100 ML INFUS..BTL INJ ONE
[2021-12-29 11:29] LABS: CREATININE, SERUM 0.94 mg/dL (0.57-1.11)
== END ==
LOC: CT 09:33
PROVIDERS: ATTEND Internal Medicine Gastroenterology
DX: R10.84 Generalized abdominal pain (principal)
CPT/HCPCS: 36415; 74177; 82565; 84520; Q9967

== ENCOUNTER → 2022-01-21 | Outpatient (CLI) | payer MEDICARE, BC ==
[~2022-01-21] MED LIST changes: +GADOBENATE DIMEGLUMINE 1 ML IV ONE; -IOPAMIDOL 370 MG/ML 100 ML INFUS..BTL INJ ONE
== END ==
LOC: MRI 08:43
PROVIDERS: ATTEND Internal Medicine Gastroenterology
DX: R16.1 Splenomegaly, not elsewhere classified (principal)
CPT/HCPCS: 74183

== ENCOUNTER → 2022-04-14 | Day surgery (SDC) | payer MEDICARE, BC ==
[2022-04-10 09:39] LABS: BASOPHILS # (AUTO) 0.1 (0.0-0.1); BASOPHILS % 1.2 % (0.0-1.0); EOSINOPHILS # (AUTO) 0.1 (0.0-0.4); EOSINOPHILS % 1.2 % (0.0-6.0); HEMATOCRIT 38.9 % (34.2-44.1); HEMOGLOBIN 12.4 g/dL (12.0-16.0); LYMPHOCYTES # (AUTO) 1.4 (1.0-3.2); LYMPHOCYTES % 24.2 % (18.0-39.1); MEAN CORPUSCULAR HEMOGLOBIN 28.6 pg (28-32); MEAN CORPUSCULAR HGB CONC 31.9 g/dL (31-35); MEAN CORPUSCULAR VOLUME 89.8 fL (81-99); MONOCYTES # (AUTO) 0.6 (0.2-0.8); MONOCYTES % 9.8 % (4.4-11.3); NEUTROPHILS # (AUTO) 3.6 (2.1-6.9); NEUTROPHILS % 63.4 % (38.7-80.0); PLATELET COUNT 121 x10e3/uL (140-360); RED BLOOD COUNT 4.33 x10e6/uL (3.6-5.1); RED CELL DISTRIBUTION WIDTH 12.7 % (11.7-14.4)
[~2022-04-14] MED LIST changes: +DICYCLOMINE HCL20 MG PO; +FENTANYL CITRATE/PF 100MCG/2 ML INJ ONE; -GADOBENATE DIMEGLUMINE 1 ML IV ONE; +METOCLOPRAMIDE HCL 10 MG/2ML VIAL ONE; +MIDAZOLAM HCL 2 MG/2 ML VIAL ONE; +PROPOFOL IV EMULSION 10 MG/ML 20 ML VIAL ONE
[2022-04-14 13:35] VITALS: BP 147/77
== END | disposition home or self-care (01) ==
LOC: ENDO 11:01
PROVIDERS: ATTEND Internal Medicine Gastroenterology
DX: K20.90 Esophagitis, unspecified without bleeding (principal); K31.7 Polyp of stomach and duodenum; K29.50 Unspecified chronic gastritis without bleeding; K21.9 Gastro-esophageal reflux disease without esophagitis; E11.9 Type 2 diabetes mellitus without complications; I10 Essential (primary) hypertension; J45.909 Unspecified asthma, uncomplicated; E78.5 Hyperlipidemia, unspecified; M06.9 Rheumatoid arthritis, unspecified; M19.90 Unspecified osteoarthritis, unspecified site; F41.9 Anxiety disorder, unspecified; Z79.4 Long term (current) use of insulin; Z79.899 Other long term (current) drug therapy
CPT/HCPCS: 0223U; 36415 ×2; 43239; 43450; 82948; 85025; 88305; 88342; 93005; C9113; J2250; J2704; J2765; J3010; 88304; 88312

== ENCOUNTER → 2022-10-27 | Outpatient (CLI) | payer MEDICARE, BC ==
[~2022-10-27] MED LIST changes: -FENTANYL CITRATE/PF 100MCG/2 ML INJ ONE; -METOCLOPRAMIDE HCL 10 MG/2ML VIAL ONE; -MIDAZOLAM HCL 2 MG/2 ML VIAL ONE; -PROPOFOL IV EMULSION 10 MG/ML 20 ML VIAL ONE
== END ==
LOC: MAMMO 09:22
PROVIDERS: ATTEND Internal Medicine
DX: Z12.31 Encounter for screening mammogram for malignant neoplasm of breast (principal); M85.88 Other specified disorders of bone density and structure, other site
CPT/HCPCS: 77067; 77080

== ENCOUNTER 2024-05-08 12:11 | Emergency (ER) | payer MEDICARE, BC ==
[~2024-05-08] VITALS: Ht 154.9 cm; Wt 78.9 kg
[2024-05-08 12:25] VITALS: TEMP 98.1
[2024-05-08 13:35] LABS: COLOR,URINE YELLOW (YELLOW); LEUKOCYTE ESTERASE ,URINE LARGE (NEGATIVE); NITRITE,URINE POSITIVE (NEGATIVE); PH,URINE 7 (5 - 7)
[2024-05-08 13:36] LABS: BILIRUBIN,URINE NEGATIVE (NEGATIVE); CLARITY,URINE CLEAR (CLEAR); GLUCOSE, URINE NEGATIVE (NEGATIVE); KETONES,URINE NEGATIVE (NEGATIVE); PROTEIN,URINE DIPSTICK TRACE (NEGATIVE); URINE UROBILINOGEN 1 mg/dL (0.2 - 1)
[2024-05-08] MEDS ORDERED: CEFDINIR300 MG PO (13:46)
[2024-05-08 13:50] LABS: RBC,URINE 0-5 /HPF (0-5); WBC,URINE (MAN) 21-50 /HPF (0-5)
[2024-05-08 13:51] LABS: BACTERIA,URINE MANY /HPF; EPITHELIAL CELLS,URINE RARE /LPF
[2024-05-08 14:11] VITALS: PULSE 68; RESP 14; O2SAT 99
== END 2024-05-08 14:17 | disposition home or self-care (01) ==
LOC: ER 12:25
DX: R30.0 Dysuria (principal); N39.0 Urinary tract infection, site not specified; I10 Essential (primary) hypertension; E11.9 Type 2 diabetes mellitus without complications; E78.5 Hyperlipidemia, unspecified
CPT/HCPCS: 81001; 99283

== ENCOUNTER → 2024-10-30 | Outpatient (REF) | payer MEDICARE, BC ==
[~2024-10-30] MED LIST changes: +CEFDINIR300 MG PO
== END ==
LOC: MAMMO 12:40
PROVIDERS: ATTEND Internal Medicine
DX: Z12.31 Encounter for screening mammogram for malignant neoplasm of breast (principal)
CPT/HCPCS: 77067

== ENCOUNTER → 2024-12-18 | Outpatient (REF) | payer MEDICARE, BC | LOC: MRI 08:24 | PROVIDERS: ATTEND Psychiatry & Neurology Clinical Neurophysiology | DX: Z98.1 Arthrodesis status (principal) | CPT/HCPCS: 72141 ==

== ENCOUNTER → 2025-05-04 | Outpatient (REF) | payer MEDICARE, BC | LOC: MRI 09:39 | PROVIDERS: ATTEND Anesthesiology | DX: M54.16 Radiculopathy, lumbar region (principal) | CPT/HCPCS: 72148 ==